=== PATIENT | male | born 1970 | race African-American/Black ===

== ENCOUNTER 2018-02-27 08:55 | Inpatient (IN) | payer OTHER ==
[2018-02-27 09:07] VITALS: BMI 25.2
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
[2018-02-27] MEDS ORDERED: MAGNESIUM HYDROX 2400MG/30ML ORAL SUSPENSION 30 ML CUP PO PRN (11:27)
[2018-02-27] MEDS ORDERED: IBUPROFEN 400 MG TABLET (FP) PO PRN (11:27)
[2018-02-27] MEDS ORDERED: MENTHOL/PHENOL 1 EACH UD MM PRN (11:27)
[2018-02-27] MEDS ORDERED: MAG HYDROX/AL HYDROX/SIMETH 30 ML UNIT-DOSE CUP PO PRN (11:27)
[2018-02-27] MEDS ORDERED: P-EPHED 60MG/TRIPROLIDI 2.5MG TABLET PO PRN (11:27)
[2018-02-27] MEDS ORDERED: guaiFENesin/D-METHORPHAN HB 10 ML UNIT-DOSE CUPS PO PRN (11:27)
[2018-02-27] MEDS ORDERED: chlordiazePOXIDE HCL 25 MG CAPSULE PO PRN (11:27)
[2018-02-27] MEDS ORDERED: MAGNESIUM CITRATE 300 ML BOTTLE PO PRN (11:27)
[2018-02-27] MEDS: amLODIPine BESYLATE 5 MG TABLET (FP) PO SCH (14:48)
[2018-02-27] MEDS: chlordiazePOXIDE HCL 25 MG CAPSULE PO SCH ×2 (17:35→22:22)
[2018-02-27] MEDS: THIAMINE HCL 100 MG TABLET (FP) PO SCH (22:22)
[2018-02-27] MEDS: MELATONIN 5 MG TABLETS PO PRN (22:23)
[2018-02-28] MEDS: chlordiazePOXIDE HCL 25 MG CAPSULE PO SCH ×4 (05:18→22:18)
[2018-02-28] MEDS: amLODIPine BESYLATE 5 MG TABLET (FP) PO SCH (10:03)
[2018-02-28] MEDS: PRENATAL VITAMINS W/ FOLIC ACID TABLET (FP) PO SCH (10:03)
--- NOTE | 2018-02-28 10:20 | PN ---
S CIWA - CIWA Score Nausea/Vomitin-No Nausea/No Vomiting Muscle Tremors: 3 Anxiety: 3 Agitation: 3 Paroxysmal Sweats: 3 Orientation: 0-Oriented Tacttile Disturbances: 0-None Auditory Disturbances: 0-None Visual Disturbances: 0-None Headache: 1-Very Mild CIWA-Ar Total Score: 13 BHS Progress Note (SOAP) Subjective: headache sweats shakes interrupted sleep body aches Objective: 02/28/18 10:19 Vital Signs Temperature 97.9 F 02/28/18 09:16 Pulse Rate 67 02/28/18 09:16 Respiratory Rate 18 02/28/18 09:16 Blood Pressure 103/58 L 02/28/18 09:16 O2 Sat by Pulse Oximetry (%) labs pending aaox3 ambulating no acute distress Assessment: 02/28/18 10:19 withdrawal sx Plan: continue detox increase fluids labs pending
[2018-02-28 10:48] LABS: HEMATOCRIT 41.3 % (35.4-49); HEMOGLOBIN 13.4 GM/dL (11.7-16.9); MCH 27.8 pg (25.7-33.7); MCHC 32.4 g/dl (32.0-35.9); MEAN CELL VOLUME 85.8 fl (80-96); MEAN PLT VOLUME 7.8 fl (7.5-11.1); PLATELET COUNT 337 K/MM3 (134-434); RBC 4.81 M/mm3 (4.00-5.60); RDW 13.7 % (11.9-15.9); WHITE BLOOD COUNT 5.8 K/mm3 (4.0-10.0)
[2018-02-28 11:09] LABS: ALBUMIN 3.9 g/dl (3.4-5.0); ALK PHOS 66 U/L (45-117); ANION GAP 9 MMOL/L (8-16); BILIRUBIN,TOTAL 0.3 mg/dL (0.2-1); BLOOD UREA NITROGEN 18 mg/dL (7-18); CALCIUM 9.9 mg/dL (8.5-10.1); CHLORIDE 100 mmol/L (98-107); CO2 27 mmol/L (21-32); GLUCOSE,RANDOM 94 mg/dL (74-106); POTASSIUM 4.1 mmol/L (3.5-5.1); SGOT/AST 33 U/L (15-37); SGPT/ALT 69 U/L (13-61); SODIUM 137 mmol/L (136-145); TOT PROT 7.7 g/dl (6.4-8.2)
[2018-02-28] MEDS: THIAMINE HCL 100 MG TABLET (FP) PO SCH (22:17)
[2018-02-28] MEDS: MELATONIN 5 MG TABLETS PO PRN (22:18)
[2018-03-01] MEDS: chlordiazePOXIDE HCL 25 MG CAPSULE PO SCH ×2 (05:46→10:09)
[2018-03-01] MEDS: amLODIPine BESYLATE 5 MG TABLET (FP) PO SCH (10:09)
[2018-03-01] MEDS: PRENATAL VITAMINS W/ FOLIC ACID TABLET (FP) PO SCH (10:09)
--- NOTE | 2018-03-01 12:03 | PN ---
S CIWA - CIWA Score Nausea/Vomitin-No Nausea/No Vomiting Muscle Tremors: 2 Anxiety: 2 Agitation: 3 Paroxysmal Sweats: 2 Orientation: 0-Oriented Tacttile Disturbances: 0-None Auditory Disturbances: 0-None Visual Disturbances: 0-None Headache: 0-None Present CIWA-Ar Total Score: 9 BHS Progress Note (SOAP) Subjective: sweats interrupted sleep agitation Objective: 03/01/18 12:02 Vital Signs Temperature 99.7 F H 03/01/18 10:13 Pulse Rate 75 03/01/18 10:13 Respiratory Rate 18 03/01/18 10:13 Blood Pressure 113/68 03/01/18 10:13 O2 Sat by Pulse Oximetry (%) Laboratory Tests 02/28/18 02/28/18 02/28/18 05:45 05:45 05:45 WBC 5.8 RBC 4.81 Hgb 13.4 Hct 41.3 MCV 85.8 MCH 27.8 MCHC 32.4 RDW 13.7 Plt Count 337 MPV 7.8 Sodium 137 Potassium 4.1 Chloride 100 Carbon Dioxide 27 Anion Gap 9 BUN 18 Creatinine 1.0 Creat Clearance w eGFR > 60 Random Glucose 94 Calcium 9.9 Total Bilirubin 0.3 AST 33 ALT 69 H Alkaline Phosphatase 66 Total Protein 7.7 Albumin 3.9 RPR Titer Nonreactive aaox3 ambulating no acute distress Assessment: 03/01/18 12:02 withdrawal sx Plan: continue detox increase fluids
[2018-03-01] MEDS: chlordiazePOXIDE 5 MG CAPSULE PO SCH ×2 (17:21→22:40)
[2018-03-01] MEDS: THIAMINE HCL 100 MG TABLET (FP) PO SCH (22:40)
[2018-03-02] MEDS: chlordiazePOXIDE 5 MG CAPSULE PO SCH ×2 (05:35→10:21)
[2018-03-02] MEDS: ACETAMINOPHEN 325 MG TABLET (FP) PO PRN ×2 (05:36→10:22)
[2018-03-02] MEDS: amLODIPine BESYLATE 5 MG TABLET (FP) PO SCH (10:21)
[2018-03-02] MEDS: PRENATAL VITAMINS W/ FOLIC ACID TABLET (FP) PO SCH (10:21)
--- NOTE | 2018-03-02 11:57 | PN ---
BHS Progress Note (SOAP) Subjective: feeling better no tremor less sweat sleep better at night Objective: 03/02/18 11:56 Vital Signs Temperature 98.5 F 03/02/18 09:34 Pulse Rate 76 03/02/18 09:34 Respiratory Rate 18 03/02/18 09:34 Blood Pressure 117/74 03/02/18 09:34 O2 Sat by Pulse Oximetry (%) Laboratory Last Values WBC 5.8 K/mm3 (4.0-10.0) 02/28/18 05:45 RBC 4.81 M/mm3 (4.00-5.60) 02/28/18 05:45 Hgb 13.4 GM/dL (11.7-16.9) 02/28/18 05:45 Hct 41.3 % (35.4-49) 02/28/18 05:45 MCV 85.8 fl (80-96) 02/28/18 05:45 MCH 27.8 pg (25.7-33.7) 02/28/18 05:45 MCHC 32.4 g/dl (32.0-35.9) 02/28/18 05:45 RDW 13.7 % (11.9-15.9) 02/28/18 05:45 Plt Count 337 K/MM3 (134-434) 02/28/18 05:45 MPV 7.8 fl (7.5-11.1) 02/28/18 05:45 Sodium 137 mmol/L (136-145) 02/28/18 05:45 Potassium 4.1 mmol/L (3.5-5.1) 02/28/18 05:45 Chloride 100 mmol/L (98-107) 02/28/18 05:45 Carbon Dioxide 27 mmol/L (21-32) 02/28/18 05:45 Anion Gap 9 MMOL/L (8-16) 02/28/18 05:45 BUN 18 mg/dL (7-18) 02/28/18 05:45 Creatinine 1.0 mg/dL (0.55-1.3) 02/28/18 05:45 Creat Clearance w eGFR > 60 (>60) 02/28/18 05:45 Random Glucose 94 mg/dL (74-106) 02/28/18 05:45 Calcium 9.9 mg/dL (8.5-10.1) 02/28/18 05:45 Total Bilirubin 0.3 mg/dL (0.2-1) 02/28/18 05:45 AST 33 U/L (15-37) 02/28/18 05:45 ALT 69 U/L (13-61) H 02/28/18 05:45 Alkaline Phosphatase 66 U/L (45-117) 02/28/18 05:45 Total Protein 7.7 g/dl (6.4-8.2) 02/28/18 05:45 Albumin 3.9 g/dl (3.4-5.0) 02/28/18 05:45 RPR Titer Nonreactive (NONREACTIVE) 02/28/18 05:45 lab noted Assessment: 03/02/18 11:56 mild withdrawal sx Plan: medically supervised detox
[2018-03-02] MEDS: chlordiazePOXIDE HCL 10 MG CAPSULE PO SCH ×2 (17:34→22:28)
[2018-03-02] MEDS: MELATONIN 5 MG TABLETS PO PRN (22:28)
[2018-03-02] MEDS: THIAMINE HCL 100 MG TABLET (FP) PO SCH (22:28)
[2018-03-03] MEDS: chlordiazePOXIDE HCL 10 MG CAPSULE PO SCH (05:57)
[2018-03-03 07:07] VITALS: BP 122/68; PULSE 71; TEMP 97.9
--- NOTE | 2018-03-03 09:06 | DS ---
[facility] Detox Discharge Summary Admission Date: 02/27/18 Discharge Date: 03/03/18 - History Present History: Alcohol Dependence, Cocaine Dependence - Physical Exam Results Vital Signs: Vital Signs Temperature 97.9 F 03/03/18 07:07 Pulse Rate 71 03/03/18 07:07 Respiratory Rate 18 03/03/18 07:07 Blood Pressure 122/68 03/03/18 07:07 O2 Sat by Pulse Oximetry (%) - Treatment Hospital Course: Detox Protocol Followed, Detoxed Safely, Responded well, Discharged Condition Good, Rehab Referral Accepted - Medication Discharge Medications: Ambulatory Orders Amlodipine Besylate [Norvasc -] 5 mg PO DAILY #14 tablet 03/02/18 - Diagnosis (1) Alcohol dependence Status: Acute Qualifiers: Substance use status: uncomplicated Qualified Code(s): F10.20 - Alcohol dependence, uncomplicated (2) Cocaine dependence Status: Acute Qualifiers: Substance use status: uncomplicated Qualified Code(s): F14.20 - Cocaine dependence, uncomplicated - AMA Did Patient Leave Against Medical Advice: No (going home)
--- NOTE | 2018-05-06 11:43 | EKG ---
Test Reason : Blood Pressure : / mmHG Vent. Rate : 061 BPM Atrial Rate : 061 BPM P-R Int : 154 ms QRS Dur : 088 ms QT Int : 462 ms P-R-T Axes : 061 050 038 degrees QTc Int : 465 ms NORMAL SINUS RHYTHM NORMAL ECG NO PREVIOUS ECGS AVAILABLE Confirmed by Jordi Brennan MD ([id number]) on 05/06/2018 11:42:42 AM Referred By: Confirmed By:Jordi Brennan MD
== END 2018-03-03 07:08 | disposition home or self-care (01) | DRG 774 ==
LOC: YASAS 08:55 → Y6N 11:59
PROC: HZ2ZZZZ Detoxification Services for Substance Abuse Treatment (ICD-10-PCS; principal; 2018-02-27)
DX: F10.230 Alcohol dependence with withdrawal, uncomplicated (principal); F14.20 Cocaine dependence, uncomplicated; I10 Essential (primary) hypertension; Z88.2 Allergy status to sulfonamides; Z91.013 Allergy to seafood
CPT/HCPCS: 36415; 80053; 85027; 86593; 93005; 93010